=== PATIENT | female | born 1940 | race African-American/Black ===

== ENCOUNTER 2016-07-15 13:32 | Emergency (ER) | payer OTHER ==
--- NOTE | ~2016-07-15 | CR219 ---
[facility] A Service of [facility] RADIOLOGY TEXT RESULTS PATIENT: STEVEN MARRUFO LOCATION: [facility] : 42 UNIT #: [id number] AGE: [address]: Micheal Segovia MD SEX: F ORDER DR: [id number] [facility] [address] [place], [place] [address] [id number] E MR#: [id number] Acc #: [id number] NAME: STEVEN MARRUFO : 1940 SEX: F STUDY DATE/TIME: 07/15/2016 1307 UNIT: [facility] ROOM: STUDY DESCRIPTION: CR Sacrum and Coccyx Min 2 Vie Attending Physician: Micheal Segovia M.D. Ordering Physician: Micheal Segovia M.D. Primary Care Physician: No Primary Care Physician MEDICAL IMAGING REPORT This report is preliminary unless electronic signature is present EXAM Sacrum and coccyx 07/15/2016 1307 hours HISTORY Patient has had multiple falls complaining of sacral coccygeal pain for 2 days. COMPARISON Hip and lumbar spine films 03/30/2016. FINDINGS AP and lateral views of the sacrum and coccyx are somewhat degraded by overlying gas and stool. No separation of the sacroiliac joints is seen. There is degenerative change right greater than left hip. Lateral view of the sacrum appears similar to 03/30/2016 lumbar spine series. The bones are somewhat osteopenic and the lower sacrum and coccyx are difficult to discriminate. IMPRESSION No definite fracture of the sacrum or coccyx. Bones are osteopenic. Sacroiliac joints appear normal. The degree of osteopenia makes detection of subtle fracture difficult. No displaced fractures are seen. Dictated by... Katie Infante M.D. THIS IS AN ELECTRONICALLY VERIFIED REPORT Katie Infante M.D. at 07/15/2016 6:54 PM Joo TD: 07/15/2016 16:19 JOB #: [id number] [facility] A Service of [facility] RADIOLOGY TEXT RESULTS PATIENT: STEVEN MARRUFO LOCATION: [facility] #: [id number] : 42 UNIT #: [id number] AGE: [address]: Micheal Segovia MD SEX: F ORDER DR: MEDICAL IMAGING REPORT Page 1 of 1 COPY
[2016-07-15 12:33] LABS: BASOPHIL% 0.6 % (0-2.5); DIFF IND NO; EOSINOPHIL# 0.1 X10e3 (0-0.7); EOSINOPHIL% 2.4 % (0.0-7.0); HEMATOCRIT 41.5 % (35.0-45.0); HEMOGLOBIN 13.5 gm/dL (12.0-16.0); LYMPHOCYTE# 0.9 X10e3 (1.0-3.5); LYMPHOCYTE% 16.7 % (17.0-45.0); MEAN CELL VOLUME 93.1 FL (83-96); MEAN CORPUSCULAR HEMOGLOBIN 30.2 PG (28-34); MEAN CORPUSCULAR HGB CONC 32.4 g/dL (30-36); MEAN PLATELET VOLUME 9.9 FL (6.5-11.5); MONOCYTE# 0.7 X10e3 (0-1.0); MONOCYTE% 13.9 % (3.0-12.0); NEUTROPHIL# 3.5 X10e3 (1.5-7.1); NEUTROPHIL% 66.4 % (40-75); PLATELET COUNT 137 X10e3 (140-420); RED BLOOD COUNT 4.46 X10e (3.90-5.30); RED CELL DISTRIBUTION WIDTH 12.9 % (11.0-15.5); WHITE BLOOD COUNT 5.2 X10e3 (4.0-10.5)
[2016-07-15 12:42] LABS: URINE SOURCE CLEAN CATCH
[2016-07-15 12:49] LABS: URINE APPEARANCE CLEAR; URINE BILIRUBIN NEG (NEG); URINE BLOOD NEG (NEG); URINE COLOR YELLOW; URINE GLUCOSE NEG (NEG); URINE KETONE NEG (NEG); URINE LEUKOCYTE ESTERASE TRACE (NEG); URINE NITRATE NEG (NEG); URINE PH 6.5 (5-8); URINE PROTEIN NEG (NEG); URINE SPECIFIC GRAVITY 1.018 (1.003-1.035)
[2016-07-15 12:54] LABS: URBCS1 AUWI 0-2 /[HPF] (0-2); URINE BACTERIA AUWI NEG (NEGATIVE); URINE SQUAMOUS EPITHELIAL CELL NONE SEEN /[HPF]; UWBCS1 AUWI 0-2 (0-5)
[2016-07-15 12:59] LABS: CULTURE INDICATED? NO
[2016-07-15 13:11] LABS: BLOOD UREA NITROGEN 10 mg/dL (9-23); BUN/CREATININE RATIO 14.28; CALCIUM SERUM 9.8 mg/dL (8.4-10.2); CARBON DIOXIDE 25 mmol/L (22-31); CHLORIDE 108 mmol/L (100-111); CREATININE SERUM 0.7 mg/dL (0.6-1.4); GLOM FILT RATE Estimated ABOVE60 mL/min (>60); GLUCOSE FASTING 73 mg/dL (70-110); POTASSIUM 3.9 mmol/L (3.5-5.1); SODIUM 139 mmol/L (135-145)
[~2016-07-15 13:32] MED LIST: ACETAMINOPHEN PO; ASPIRIN81 M2 PO; ATORVASTATIN CA10 MG PO; BAYER CHEWABLE81 MG PO; CLOPIDOGREL75 MG PO; LEVAQUIN750 MG PO; LEVOTHYROXINE75 MC1 PO; LEVOTHYROXINE75 MCG PO; LEXAPRO PO; LIPITOR PO; LIPITOR20 MG PO; LYRICA PO; LYRICA100 MG PO; NAPROSYN500 MG PO; NAPROXEN500 M1 PO; PROTONIX PO; PROTONIX20 MG PO; THYROXIN PO; TRAMADOL HCL50 M1 PO; VITAMIN D250000 UNIT PO; VITAMIN D400 UNI2 PO; VITAMIN D50000 UNIT PO
== END 2016-07-15 14:25 | disposition home or self-care (01) ==
LOC: CED 13:32
PROVIDERS: Emergency Medicine
DX: S30.0XXA Contusion of lower back and pelvis, initial encounter (principal); Z88.0 Allergy status to penicillin; Z88.2 Allergy status to sulfonamides; Z79.899 Other long term (current) drug therapy; W01.0XXA Fall on same level from slipping, tripping and stumbling without subsequent striking against object, initial encounter; Y92.002 Bathroom of unspecified non-institutional (private) residence as the place of occurrence of the external cause
CPT/HCPCS: 72220; 80048; 81003; 85025; 99283

== ENCOUNTER 2016-09-24 15:35 | Emergency (ER) | payer OTHER ==
--- NOTE | ~2016-09-24 | CT71 ---
[facility] A Service of [facility] RADIOLOGY TEXT RESULTS PATIENT: STEVEN MARRUFO LOCATION: [facility] : 42 UNIT #: [id number] AGE: [address]: Paula Valenzuela MD SEX: F ORDER DR: [id number] [facility] [address] [place], [place] [address] [id number] E MR#: [id number] Acc #: [id number] NAME: STEVEN MARRUFO : 1940 SEX: F STUDY DATE/TIME: 09/24/2016 17:37 UNIT: [facility] ROOM: STUDY DESCRIPTION: CT Head Wo Contrast Attending Physician: Paula Valenzuela M.D. Ordering Physician: Paula Valenzuela M.D. Primary Care Physician: No Primary Care Physician MEDICAL IMAGING REPORT This report is preliminary unless electronic signature is present EXAM Head CT without contrast, 09/24/16. HISTORY New onset confusion today, previous stroke in 2014. FINDINGS Multiple axial images were obtained from the skull base to vertex without intravenous contrast administration. This CT exam was performed with one or more of the following radiation dose reduction techniques: automatic exposure control, adjustment of mA and/or kV according to patient size, and iterative reconstruction. There is generalized enlargement of the ventricles and sulci characteristic of atrophy and there is periventricular microvascular white matter ischemic change. There is no midline shift. There is no mass or mass effect, hemorrhage or acute infarct. Left orbital prosthesis is noted. The visualized paranasal sinuses are clear. IMPRESSION Generalized atrophy and periventricular microvascular white matter ischemic change. No acute intracranial abnormality. Dictated by... Alexandre Merida M.D. THIS IS AN ELECTRONICALLY VERIFIED REPORT Alexandre Merida M.D. at 09/26/2016 8:22 AM ROSIBEL/michael TD: 09/25/2016 00:31 JOB #: [id number] [facility] A Service of [facility] RADIOLOGY TEXT RESULTS PATIENT: STEVEN MARRUFO LOCATION: [facility] #: [id number] : 42 UNIT #: [id number] AGE: [address]: Paula Valenzuela MD SEX: F ORDER DR: MEDICAL IMAGING REPORT Page 1 of 1 COPY
--- NOTE | ~2016-09-24 | CR206 ---
[facility] A Service of [facility] & [facility] RADIOLOGY TEXT RESULTS PATIENT: STEVEN MARRUFO LOCATION: [facility] : 42 UNIT #: [id number] AGE: [address]: Paula Valenzuela MD SEX: F ORDER DR: [id number] [facility] [address] [place], [place] [address] [id number] E MR#: [id number] Acc #: [id number] NAME: STEVEN MARRUFO. : 1940 SEX: F STUDY DATE/TIME: 09/24/2016 17:24 UNIT: [facility] ROOM: STUDY DESCRIPTION: CR Pelvis 1 or 2 Views Attending Physician: Paula Valenzuela M.D. Ordering Physician: Paula Valenzuela M.D. Primary Care Physician: Primary Care Physician No MEDICAL IMAGING REPORT This report is preliminary unless electronic signature is present EXAM Two views of the pelvis INDICATIONS pain in the right hip following a fall 5 days ago FINDINGS There is some irregularity involving the superior pubic ramus on the right; however, it appears not significantly changed when compared to the exam from June 2016, and thus is not felt to be acute. No aggressive osseous abnormalities are seen. There are degenerative changes involving the hips, right greater than left. Full assessment of the sacrum is limited due to overlying stool burden. Sacroiliac joints actually appear fairly well preserved. IMPRESSION Some irregularity of the right superior pubic ramus I do not think has really significantly changed when compared to the exam from June 2016. Potentially, it may reflect an old fracture. I am not convinced I can see any acute fractures on today's study. Please note evaluation of the sacrum, however is very limited due to overlying bowel gas. Dictated by... Christina Sahu M.D. THIS IS AN ELECTRONICALLY VERIFIED REPORT Christina Sahu M.D. at 09/25/2016 10:53 AM AFF/psc TD: 09/25/2016 00:49 JOB #: [id number] [facility] A Service of [facility] & [facility] RADIOLOGY TEXT RESULTS PATIENT: STEVEN MARRUFO LOCATION: [facility] #: [id number] : 42 UNIT #: [id number] AGE: [address]: Paula Valenzuela MD SEX: F ORDER DR: MEDICAL IMAGING REPORT Page 1 of 1 COPY
--- NOTE | ~2016-09-24 | CT122 ---
[facility] A Service of [facility] RADIOLOGY TEXT RESULTS PATIENT: STEVEN MARRUFO LOCATION: [facility] : 42 UNIT #: [id number] AGE: [address]: Paula Valenzuela MD SEX: F ORDER DR: [id number] [facility] [address] [place], [place] [address] [id number] E MR#: [id number] Acc #: [id number] NAME: STEVEN MARRUFO : 1940 SEX: F STUDY DATE/TIME: 09/24/2016 20:35 UNIT: [facility] ROOM: STUDY DESCRIPTION: CT Thoracic Spine Wo Cont Attending Physician: Paula Valenzuela M.D. Ordering Physician: Paula Valenzuela M.D. Primary Care Physician: Primary Care Physician No MEDICAL IMAGING REPORT This report is preliminary unless electronic signature is present EXAM Thoracic spine CT without HISTORY Patient fell and has mid-to-low back pain. Patient fell 5 days ago. No history of cancer. COMMENT CT of the thoracic spine performed in the axial plane followed by sagittal and coronal reconstructed images. This CT exam was performed with one or more of the following radiation dose reduction techniques: automatic exposure control, adjustment of mA and/or kV according to patient size, and iterative reconstruction. No comparison. There are acute-appearing fractures involving the inferior endplate of T8 with minimal displacement and mild loss of vertebral body height. Involvement is most apparent anterolaterally but there probably is minimal involvement of the posterior-inferior cortex. There does not however appear to be thoracic bony canal stenosis associated with this. Alignment is still normal. Multiple level Schmorl node formation is noted. Multiple level mild endplate spondylosis noted. See the lumbar spine dictation also for description of findings. Subtle dextroconvex scoliosis. There is some airspace disease in the left lower lobe which is possibly atelectasis due to splinting. Followup to complete resolution is recommended. Patchy airspace disease at the right base. CT scanning is not sensitive for soft tissue abnormalities. There is no bony thoracic canal compromise. [facility] A Service of [facility] RADIOLOGY TEXT RESULTS PATIENT: STEVEN MARRUFO LOCATION: [facility] #: [id number] : 42 UNIT #: [id number] AGE: [address]: Paula Valenzuela MD SEX: F ORDER DR: IMPRESSION 1. There is a recent appearing fracture involving the inferior endplate of T8. There is no associated bony canal stenosis. There is subtle loss of T8 vertebral body height. Fracture fragments are minimally displaced. 2. Alignment remains normal in the thoracic spine on sagittal reconstructed imaging and there is only subtle dextroconvex scoliosis on the coronal reconstructed imaging. 3. Likely atelectasis lung bases with focal area of consolidation at the left base. Followup is recommended to ensure complete resolution and exclude underlying pathology. 4. See the separate dictation of the lumbar spine for description of lumbar spine and sacral fractures. Dictated by... Clare Milner M.D. THIS IS AN ELECTRONICALLY VERIFIED REPORT Clare Milner M.D. at 09/25/2016 2:29 PM GRISEL/greg TD: 09/25/2016 05:25 JOB #: [id number] MEDICAL IMAGING REPORT Page 1 of 1 COPY
--- NOTE | ~2016-09-24 | CT98 ---
[facility] A Service of [facility] & [facility] RADIOLOGY TEXT RESULTS PATIENT: STEVEN MARRUFO LOCATION: [facility] : 42 UNIT #: [id number] AGE: [address]: Paula Valenzuela MD SEX: F ORDER DR: [id number] [facility] [address] [place], [place] [address] [id number] E MR#: [id number] Acc #: [id number] NAME: STEVEN MARRUFO : 1940 SEX: F STUDY DATE/TIME: 09/24/2016 20:35 UNIT: [facility] ROOM: STUDY DESCRIPTION: CT Lumbar Spine Wo Cont Attending Physician: Paula Valenzuela M.D. Ordering Physician: Paula Valenzuela M.D. Primary Care Physician: Primary Care Physician No MEDICAL IMAGING REPORT This report is preliminary unless electronic signature is present EXAM Lumbar spine CT without HISTORY Nef-kf-ndzoh back pain for 5 days after a fall. No history of cancer. COMMENT CT of the lumbar spine performed in the axial plane without contrast followed by sagittal coronal reconstructed images. This CT exam was performed with one or more of the following radiation dose reduction techniques: automatic exposure control, adjustment of mA and/or kV according to patient size, and iterative reconstruction. There is normal sagittal alignment. There is partial demonstration of sacral insufficiency fracture with areas of cortical disruption best appreciated at the anterior aspect of the right sacral ala. The trabecular pattern is disrupted in general on the bilateral sacral ala with areas of irregular lucency. Additionally on sagittal reconstructed imaging there is buckling of the anterior cortex at the inferior aspect of the S2 segment and some lucency at the S3 segment. In the setting of fall this is favored to represent an insufficiency fracture but the presence of some underlying lytic process such as multiple myeloma is also in the differential and please correlate further clinically for this possibility. No malignancy history is provided. Additionally there is what is probably a recent fracture involving the superior endplate of L1 with buckling of the anterior and posterior cortex superior aspect of L1 with subtle anterior wedging. There is only minimal retropulsion of the posterior-superior cortex L1 at the level of the T12-L1 disc and this does not appear to result in bony canal compromise. There is a compression fracture at the superior endplate of L2 which is probably more chronic with Schmorl node formation and some sclerosis. [facility] A Service of [facility] & [facility] RADIOLOGY TEXT RESULTS PATIENT: STEVEN MARRUFO LOCATION: [facility] : 42 UNIT #: [id number] AGE: [address]: Paula Valenzuela MD SEX: F ORDER DR: Otherwise, at T12-L1, there is also mild concentric disc bulge in addition to the subtle fracture and there is probably mild effacement of the anterior thecal sac but there is no bony foraminal narrowing. At L1-2, no canal or foraminal compromise suspected. At L2-3, no canal or foraminal compromise suspected. At L3-4, no canal or foraminal compromise. At L4-5, mild facet degenerative change bilaterally. Mild concentric disc bulge. Mild canal stenosis. Mild bilateral inferior foraminal narrowing. At L5-S1, mild facet degenerative change bilaterally, probably a mild concentric disc bulge but no apparent canal stenosis. Likely at least mild foraminal narrowing bilaterally. Multiple large gallstones appreciated right upper quadrant. IMPRESSION 1. Findings are most consistent with the presence of a sacral insufficiency fracture involving bilateral sacral ala and crossing at the level of inferior S2 to upper S3 segment. Given history of fall it is likely an insufficiency fracture due to underlying osteopenia but please exclude underlying multiple myeloma or metastatic disease. Multiple areas of lucency are appreciated within the sacrum. 2. Probably also a recent mild compression fracture of the superior endplate of L1 without evidence of associated bony canal stenosis. Lumbar alignment is normal. 3. Probably a more chronic mild compression fracture at the superior endplate of L2. 4. Large gallstones partly seen right upper quadrant. Dictated by... Clare Milner M.D. THIS IS AN ELECTRONICALLY VERIFIED REPORT Clare Milner M.D. at 09/25/2016 2:29 PM GRISEL/greg TD: 09/25/2016 05:08 JOB #: [id number] MEDICAL IMAGING REPORT Page 1 of 1 COPY
--- NOTE | ~2016-09-24 | EKG ---
PATIENT: STEVEN MARRUFO UNIT #: [id number] Ventricular Rate: 72 BPM Atrial Rate: 72 BPM P-R Interval: 134 ms QRS Duration: 122 ms Q-T Interval: 456 ms QTC Calculation(Bezet): 499 ms P [place]: 63 degrees Calculated R [place]: 73 degrees Calculated T [place]: 41 degrees Diagnosis Line: Normal sinus rhythm with sinus arrhythmia Diagnosis Line: Right bundle branch block Diagnosis Line: Abnormal ECG Diagnosis Line: When compared with ECG of 12-APR-2016 14:06, Diagnosis Line: No significant change was found Diagnosis Line: Confirmed by JONEL CASIANO MD ([id number]) on Diagnosis Line: 09/28/2016 9:35:46 AM INTERPRETING MD: MORENO
--- NOTE | ~2016-09-24 | CR181 ---
[facility] A Service of [facility] & [facility] RADIOLOGY TEXT RESULTS PATIENT: STEVEN MARRUFO LOCATION: [facility] : 42 UNIT #: [id number] AGE: [address]: Paula Valenzuela MD SEX: F ORDER DR: [id number] [facility] [address] [place], [place] [address] [id number] E MR#: [id number] Acc #: [id number] NAME: STEVEN MARRUFO. : 1940 SEX: F STUDY DATE/TIME: 09/24/2016 17:19 UNIT: [facility] ROOM: STUDY DESCRIPTION: CR Lumbar Spine 2 or 3 Views Attending Physician: Paula Valenzuela M.D. Ordering Physician: Paula Valenzuela M.D. Primary Care Physician: No Primary Care Physician MEDICAL IMAGING REPORT This report is preliminary unless electronic signature is present EXAM Three views lumbar spine. INDICATIONS Low back pain after a fall 5 days ago. FINDINGS I do think this patient has some wedging of L1. Potentially T12 which is new when compared to the prior study. These remain age indeterminate. It certainly could be acute given history of recent trauma. Bone scan or MRI would allow for more accurate assessment of acuity. This patient does have some irregularity involving the superior pubic ramus on the right. The possibility of fracture is not excluded. IMPRESSION This patient does have some wedging deformity at L1 and potentially also T-12 which I do not convincingly seen on a prior study from March of 2016. Acute fracture cannot be excluded in the setting of trauma. Bone scan or MRI would allow for more accurate assessment of acuity. In addition, I think the patient probably also has a right superior pubic ramus fracture. Dictated by... Christina Sahu M.D. THIS IS AN ELECTRONICALLY VERIFIED REPORT Christina Sahu M.D. at 09/25/2016 10:57 AM AFF/ea TD: 09/25/2016 00:21 JOB #: [id number] [facility] A Service of [facility] & [facility] RADIOLOGY TEXT RESULTS PATIENT: STEVEN MARRUFO LOCATION: [facility] #: [id number] : 42 UNIT #: [id number] AGE: [address]: Paula Valenzuela MD SEX: F ORDER DR: MEDICAL IMAGING REPORT Page 1 of 1 COPY
--- NOTE | ~2016-09-24 | CR243 ---
[facility] A Service of [facility] & [facility] RADIOLOGY TEXT RESULTS PATIENT: STEVEN MARRUFO LOCATION: [facility] : 42 UNIT #: [id number] AGE: [address]: Paula Valenzuela MD SEX: F ORDER DR: [id number] [facility] [address] [place], [place] [address] [id number] E MR#: [id number] Acc #: [id number] NAME: STEVEN MARRUFO : 1940 SEX: F STUDY DATE/TIME: 09/24/2016 17:14 UNIT: [facility] ROOM: STUDY DESCRIPTION: CR Thoracic Spine 3 Views Attending Physician: Paula Valenzuela M.D. Ordering Physician: Paula Valenzuela M.D. Primary Care Physician: No Primary Care Physician MEDICAL IMAGING REPORT This report is preliminary unless electronic signature is present EXAM Three views of the thoracic spine INDICATION Mid to lower back pain after a fall 5 days ago. FINDINGS Exam is significantly degraded by technique. I do think there are compression deformities noted at multiple levels further evaluation with dedicated CT of the thoracic spine is recommended. IMPRESSION Multiple compression deformities are suspected but are difficult to fully assess on this examination. Further evaluation with CT of the thoracic spine is recommended. Dictated by... Christina Sahu M.D. THIS IS AN ELECTRONICALLY VERIFIED REPORT Christina Sahu M.D. at 09/25/2016 10:57 AM AFF/ea TD: 09/25/2016 00:20 JOB #: [id number] MEDICAL IMAGING REPORT Page 1 of 1 COPY
[2016-09-24] MEDS ORDERED: CLOPIDOGREL75 MG PO (16:06)
[2016-09-24] MEDS ORDERED: ASPIRIN81 MG PO (16:06)
[2016-09-24] MEDS ORDERED: PROTONIX PO (16:06)
[2016-09-24 16:25] LABS: URINE SOURCE CATH
[2016-09-24 16:30] LABS: URINE APPEARANCE CLEAR; URINE BILIRUBIN NEG (NEG); URINE BLOOD TRACE (NEG); URINE COLOR YELLOW; URINE GLUCOSE NEG (NEG); URINE KETONE NEG (NEG); URINE LEUKOCYTE ESTERASE NEG (NEG); URINE NITRATE NEG (NEG); URINE PROTEIN NEG (NEG); URINE SPECIFIC GRAVITY 1.009 (1.003-1.035)
[2016-09-24 16:30] LABS: BASOPHIL% 0.5 % (0-2.5); EOSINOPHIL# 0.1 X10e3 (0-0.7); EOSINOPHIL% 1.2 % (0.0-7.0); HEMATOCRIT 44.6 % (35.0-45.0); HEMOGLOBIN 14.7 gm/dL (12.0-16.0); LYMPHOCYTE# 1.3 X10e3 (1.0-3.5); LYMPHOCYTE% 20.9 % (17.0-45.0); MEAN CELL VOLUME 92.1 FL (83-96); MEAN CORPUSCULAR HEMOGLOBIN 30.4 PG (28-34); MONOCYTE# 0.9 X10e3 (0-1.0); MONOCYTE% 13.6 % (3.0-12.0); NEUTROPHIL% 63.8 % (40-75); PLATELET COUNT 137 X10e3 (140-420); RED BLOOD COUNT 4.84 X10e (3.90-5.30); RED CELL DISTRIBUTION WIDTH 13.1 % (11.0-15.5); WHITE BLOOD COUNT 6.3 X10e3 (4.0-10.5)
[2016-09-24 16:33] LABS: U HYALINE CASTS AUWI 0-2 /[LPF]; URBCS1 AUWI 0-2 /[HPF] (0-2); URINE BACTERIA AUWI NEG (NEGATIVE); URINE SQUAMOUS EPITHELIAL CELL OCC /[HPF]; UWBCS1 AUWI 0-2 (0-5)
[2016-09-24 16:35] LABS: CULTURE INDICATED? NO
[2016-09-24 16:38] LABS: DIFF IND NO
[2016-09-24 16:47] LABS: PARTIAL THROMBOPLASTIN TIME 27.8 SECONDS (23.5-31.3); PROTHROMBIN TIME (PATIENT) 10.7 SECONDS (9.6-11.5)
[2016-09-24 16:51] LABS: ALBUMIN SERUM 3.3 g/dL (3.5-5.0); BILIRUBIN, DIRECT 0.3 mg/dL (0.0-0.2); BILIRUBIN,INDIRECT 0.7 mg/dL (0.0-0.9); BUN/CREATININE RATIO 12.85; CALCIUM SERUM 9.7 mg/dL (8.4-10.2); CREATININE SERUM 0.7 mg/dL (0.6-1.4); GLOM FILT RATE Estimated 98.9 mL/min (>60); POTASSIUM 3.7 mmol/L (3.5-5.1)
== END 2016-09-25 00:15 | disposition home or self-care (01) ==
LOC: CED 15:35
PROVIDERS: Emergency Medicine
DX: S32.19XA Other fracture of sacrum, initial encounter for closed fracture (principal); Z79.82 Long term (current) use of aspirin; Z79.899 Other long term (current) drug therapy; Z88.0 Allergy status to penicillin; Z88.2 Allergy status to sulfonamides; W18.39XA Other fall on same level, initial encounter
CPT/HCPCS: 36415; 70450; 72072; 72100; 72128; 72131; 72170; 80048; 80076; 81003; 82947; 85025; 85610; 85730; 93005; 96374; 96375; 99284; J2270; J2405